=== PATIENT | male | born 1945 | race Caucasian/White ===

== ENCOUNTER 2017-07-09 12:35 | Inpatient (IN) | payer MEDICARE, BC ==
[2017-07-09] MEDS ORDERED: SODIUM CHLORIDE 0.9% 1,000 ML IV STA (13:01)
[2017-07-09] MEDS ORDERED: CLOTRIMAZOLE 1% CREAM 15 GM TUBE TOPICAL STA (13:02)
--- NOTE | 2017-07-09 13:19 | ED ---
General Adult HPI - General Chief complaint: Urogenital Stated complaint: Urogenital Time Seen by Provider: 07/09/17 12:53 Source: patient, RN notes reviewed Mode of arrival: ambulatory Limitations: no limitations - History of Present Illness Initial comments: 72-year-old male presents to the emergency department with chief complaint of UTI. Patient states he had a procedure by Dr. Sanchez for urinary issues. Patient states that was in the middle of May. Patient states he was placed on antibiotic after he developed a UTI after this. Patient states everything seemingly doing better when he got the dysuria again and he's noticed some redness left-sided the testicles. Patient states that he went to see urologist yesterday they put him on a different antibiotic however he is feeling fever and chills at home and he called urology today informed to go the hospital to be admitted for IV antibiotics. He denies any nausea vomiting. Patient has been able to eat and drink well. Patient states he is having some dysuria. Patient denies any blood in urine that is noticed. Patient denies flank pain. Patient denies any recent fever, chills, shortness of breath, chest pain, back pain, abdominal pain, nausea vomiting, numbness or tingling, hematuria, constipation or diarrhea, headaches or visual changes, or any other current symptoms. - Related Data Home Medications Medication Instructions Recorded Confirmed Aspirin [Adult Low Dose Aspirin EC] 81 mg PO DAILY 07/09/17 07/09/17 Biotin 5 mg PO DAILY 07/09/17 07/09/17 Cyanocobalamin [Vitamin B-12] 500 mcg PO DAILY 07/09/17 07/09/17 HYDROcodone/APAP 10-325MG [[place] 1 tab PO TID PRN 07/09/17 07/09/17 10-325] Lisinopril [Zestril] 10 mg PO DAILY 07/09/17 07/09/17 Meloxicam [Mobic] 15 mg PO DAILY PRN 07/09/17 07/09/17 Methocarbamol [Robaxin] 750 mg PO TID PRN 07/09/17 07/09/17 Simvastatin [Zocor] 20 mg PO HS 07/09/17 07/09/17 Tamsulosin HCl [Flomax] 0.8 mg PO DAILY 07/09/17 07/09/17 Allergies Allergy/AdvReac Type Severity Reaction Status Date / Time No Known Allergies Allergy Verified 07/09/17 14:39 Review of Systems ROS Statement: Those systems with pertinent positive or pertinent negative responses have been documented in the HPI. ROS Other: All systems not noted in ROS Statement are negative. Past Medical History Past Medical History: Hyperlipidemia, Hypertension Additional Past Medical History / Comment(s): back pain History of Any Multi-Drug Resistant Organisms: None Reported Additional Past Surgical History / Comment(s): eye Past Psychological History: No Psychological Hx Reported Smoking Status: Former smoker Past Alcohol Use History: None Reported Past Drug Use History: None Reported General Exam Limitations: no limitations General appearance: alert, in no apparent distress Eye exam: Present: normal appearance, PERRL, EOMI. Absent: scleral icterus, conjunctival injection, periorbital swelling ENT exam: Present: normal exam, mucous membranes moist Neck exam: Present: normal inspection. Absent: tenderness, meningismus, lymphadenopathy Respiratory exam: Present: normal lung sounds bilaterally. Absent: respiratory distress, wheezes, rales, rhonchi, stridor Cardiovascular Exam: Present: regular rate, normal rhythm, normal heart sounds. Absent: systolic murmur, diastolic murmur, rubs, gallop, clicks exam: Present: other (Some induration and redness to the left groin area suspicious for tinea cruric). Absent: testicular tenderness Neurological exam: Present: alert, oriented X3 Psychiatric exam: Present: normal affect, normal mood Skin exam: Present: warm, dry, intact, normal color. Absent: rash Course Vital Signs 07/09/17 07/09/17 07/09/17 12:36 13:37 15:33 Temperature 97.9 F 97.7 F Pulse Rate 73 96 74 Respiratory 18 20 20 Rate Blood Pressure 149/67 141/66 160/62 O2 Sat by Pulse 96 97 98 Oximetry Medical Decision Making - Medical Decision Making 72-year-old male presents for dysuria. Patient antibiotics with no improvement to his symptoms. At this time. Contacted Dr. beckford with the patient admitted to Dr. Sanchez and they will comply IV antibiotics. He was continued patient IV fluids in the midline and he will continue the rest of the orders. This is discussed the patient with me. Hand. - Lab Data Result diagrams: 07/09/17 13:35 07/09/17 13:35 Lab Results 07/09/17 07/09/17 07/09/17 Range/Units 13:35 13:35 13:35 WBC 8.0 (3.8-10.6) k/uL RBC 4.38 (4.30-5.90) m/uL Hgb 13.6 (13.0-17.5) gm/dL Hct 40.9 (39.0-53.0) % MCV 93.5 (80.0-100.0) fL MCH 31.0 (25.0-35.0) pg MCHC 33.2 (31.0-37.0) g/dL RDW 14.2 (11.5-15.5) % Plt Count 131 L (150-450) k/uL Neutrophils % 75 % Lymphocytes % 14 % Monocytes % 8 % Eosinophils % 1 % Basophils % 0 % Neutrophils # 6.0 (1.3-7.7) k/uL Lymphocytes # 1.1 (1.0-4.8) k/uL Monocytes # 0.7 (0-1.0) k/uL Eosinophils # 0.1 (0-0.7) k/uL Basophils # 0.0 (0-0.2) k/uL Sodium 141 (137-145) mmol/L Potassium 3.9 (3.5-5.1) mmol/L Chloride 105 (98-107) mmol/L Carbon Dioxide 26 (22-30) mmol/L Anion Gap 10 mmol/L BUN 16 (9-20) mg/dL Creatinine 1.10 (0.66-1.25) mg/dL Est GFR (MDRD) Af Amer >60 (>60 ml/min/1.73 sqM) Est GFR (MDRD) Non-Af >60 (>60 ml/min/1.73 sqM) Glucose 157 H (74-99) mg/dL Plasma Lactic Acid Domenico 1.2 (0.7-2.0) mmol/L Calcium 8.6 (8.4-10.2) mg/dL Total Bilirubin 0.5 (0.2-1.3) mg/dL AST 19 (17-59) U/L ALT 32 (21-72) U/L Alkaline Phosphatase 51 (38-126) U/L Total Protein 6.0 L (6.3-8.2) g/dL Albumin 3.5 (3.5-5.0) g/dL Urine Color Urine Appearance (Clear) Urine pH (5.0-8.0) Ur Specific [place] (1.001-1.035) Urine Protein (Negative) Urine Glucose (UA) (Negative) Urine Ketones (Negative) Urine Blood (Negative) Urine Nitrite (Negative) Urine Bilirubin (Negative) Urine Urobilinogen (<2.0) mg/dL Ur Leukocyte Esterase (Negative) Urine RBC (0-5) /hpf Urine WBC (0-5) /hpf Urine Mucus (None) /hpf 07/09/17 Range/Units 13:35 WBC (3.8-10.6) k/uL RBC (4.30-5.90) m/uL Hgb (13.0-17.5) gm/dL Hct (39.0-53.0) % MCV (80.0-100.0) fL MCH (25.0-35.0) pg MCHC (31.0-37.0) g/dL RDW (11.5-15.5) % Plt Count (150-450) k/uL Neutrophils % % Lymphocytes % % Monocytes % % Eosinophils % % Basophils % % Neutrophils # (1.3-7.7) k/uL Lymphocytes # (1.0-4.8) k/uL Monocytes # (0-1.0) k/uL Eosinophils # (0-0.7) k/uL Basophils # (0-0.2) k/uL Sodium (137-145) mmol/L Potassium (3.5-5.1) mmol/L Chloride (98-107) mmol/L Carbon Dioxide (22-30) mmol/L Anion Gap mmol/L BUN (9-20) mg/dL Creatinine (0.66-1.25) mg/dL Est GFR (MDRD) Af Amer (>60 ml/min/1.73 sqM) Est GFR (MDRD) Non-Af (>60 ml/min/1.73 sqM) Glucose (74-99) mg/dL Plasma Lactic Acid Domenico (0.7-2.0) mmol/L Calcium (8.4-10.2) mg/dL Total Bilirubin (0.2-1.3) mg/dL AST (17-59) U/L ALT (21-72) U/L Alkaline Phosphatase (38-126) U/L Total Protein (6.3-8.2) g/dL Albumin (3.5-5.0) g/dL Urine Color Yellow Urine Appearance Turbid (Clear) Urine pH 6.0 (5.0-8.0) Ur Specific [place] 1.021 (1.001-1.035) Urine Protein 1+ H (Negative) Urine Glucose (UA) 1+ H (Negative) Urine Ketones Trace H (Negative) Urine Blood Moderate H (Negative) Urine Nitrite Negative (Negative) Urine Bilirubin Negative (Negative) Urine Urobilinogen 4.0 (<2.0) mg/dL Ur Leukocyte Esterase Large H (Negative) Urine RBC 162 H (0-5) /hpf Urine WBC >182 H (0-5) /hpf Urine Mucus Rare H (None) /hpf - Radiology Data Radiology results: report reviewed, image reviewed Disposition Clinical Impression: UTI (urinary tract infection), Failure of outpatient treatment, Tinea cruris, Orchitis and epididymitis Disposition: ADMITTED IP TO THIS [facility] Condition: Stable Time of Disposition: 14:40 Decision Date: 07/09/17 Decision Time: 14:40
[2017-07-09 13:54] LABS: Basophils % (A) 0 %; CH 31.6; CHCM 33.9; Eosinophils # (A) 0.1 k/uL (0-0.7); Eosinophils % (A) 1 %; HCT 40.9 % (39.0-53.0); HGB 13.6 gm/dL (13.0-17.5); Luc # (Auto) 0.16; Luc % (Auto) 2; Lymphocytes # (A) 1.1 k/uL (1.0-4.8); Lymphocytes % (A) 14 %; MCHC 33.2 g/dL (31.0-37.0); MCV 93.5 fL (80.0-100.0); Mean Platelet Volume 9.2; Monocytes # (A) 0.7 k/uL (0-1.0); Monocytes % (A) 8 %; Neutrophils % (A) 75 %; RBC 4.38 m/uL (4.30-5.90); RDW 14.2 % (11.5-15.5); WBC (Perox) 8.26
[2017-07-09 14:00] LABS: ALT 32 U/L (21-72); AST 19 U/L (17-59); Alkaline Phosphatase 51 U/L (38-126); Anion Gap 10 mmol/L; Blood Urea Nitrogen 16 mg/dL (9-20); Calcium 8.6 mg/dL (8.4-10.2); Carbon Dioxide 26 mmol/L (22-30); Chloride 105 mmol/L (98-107); Glucose 157 mg/dL (74-99); Non-African American GFR(MDRD) >60 (>60 ml/min/1.73 sqM); Potassium 3.9 mmol/L (3.5-5.1); Sodium 141 mmol/L (137-145); Total Bilirubin 0.5 mg/dL (0.2-1.3)
[2017-07-09 14:09] LABS: Appearance,Urine Turbid (Clear); Bilirubin,Urine Negative (Negative); Glucose,Urine (UA) 1+ (Negative); Ketones,Urine Trace (Negative); Leukocyte Esterase,Urine Large (Negative); Mucus,Urine Rare /hpf; Nitrite,Urine Negative (Negative); Particle Count 11364; Protein,Urine 1+ (Negative); RBC,Urine 162 /hpf (0-5); Specific Gravity,Urine 1.021 (1.001-1.035); UA Billing (MACRO vs. MICRO) MICRO; WBC,Urine >182 /hpf (0-5)
[2017-07-09] MEDS ORDERED: NALOXONE 0.4 MG/ML 1 ML VIAL IV PRN (15:25)
[2017-07-09] MEDS ORDERED: ONDANSETRON 4 MG/2 ML VIAL IVP PRN (15:25)
[2017-07-09] MEDS ORDERED: IBUPROFEN 400 MG TAB PO PRN (15:25)
[2017-07-09] MEDS ORDERED: AMPICILLIN 1,000 MG in SODIUM CHLORIDE 0.9% 50 ML IVPB STA (15:27)
[2017-07-09] MEDS ORDERED: GENTAMICIN PER PHARMACY MISCELLANE PRN (15:27)
[2017-07-09] MEDS ORDERED: MELOXICAM 7.5 MG TAB PO PRN (15:27)
[2017-07-09] MEDS ORDERED: HYDROcodone/APAP 10-325MG 1 EACH TAB PO PRN (15:27)
[2017-07-09] MEDS ORDERED: METHOCARBAMOL 750 MG TAB PO PRN (15:27)
[2017-07-09] MEDS: SODIUM CHLORIDE 0.9% 1,000 ML IV SCH (15:38)
[2017-07-09] MEDS ORDERED: GENTAMICIN 140 MG in SODIUM CHLORIDE 0.9% 100 ML IVPB ONE (15:45)
--- NOTE | 2017-07-09 16:01 | US ---
EXAMINATION TYPE: US scrotum with doppler. DATE OF EXAM: 07/09/2017 COMPARISON: NONE CLINICAL HISTORY: 72-year-old male Pain. Left teste swelling and pain. Hx of infection after prostat e surgery on June 10, 2017. TECHNIQUE: Multiple sonographic images of the scrotum were obtained. Color Doppler and spectral wavef orm analysis of the testicular arteries and veins. FINDINGS: TESTICLES: Right Testicle: 4.2 x 3.9 x 2.6 cm for volume of 22.9 mL. Left Testicle: 3.6 x 2.9 x 2.2 cm for a volume of 11.9 mL. There is relatively homogeneous echotexture on both sides though the right testicle is larger. There may be slightly greater degree of vascularity on the left. On both sides, there is satisfactory arterial inflow and venous flow demonstrated. EPIDIDYMIS HEAD: Right Epididymis: 1.6 x 1.0 x 0.8 cm with an 8 x 5 mm pedunculated lesion likely an appendix of the epididymis. Left Epididymis: 1.4 x 1.1 x 1.3 cm with a small 4 mm epididymal head cyst. The left epididymal he ad appears echogenic and heterogeneous. Bilateral [id number] hydroceles are present and there appears to be some thickening of the cut aneous tissues of the scrotum. IMPRESSION: 1. Asymmetrically larger right testicle. No vascular compromise to suggest testicular torsion. The sm aller size of the left testicle argues against torsion-detorsion phenomenon on the left, symptomatic side. 2. Asymmetric hyperemia of the left testicle and heterogeneous appearance to the left epididymal head . Correlate to exclude epididymoorchitis. 3. Small to moderate lateral hydroceles and some scrotal skin thickening.
--- NOTE | 2017-07-09 20:39 | P.GSHP ---
History of Present Illness H&P Date: 07/09/17 The patient is a 72 yo who one month agounderwent a turp. HE has done well other than frequency during the healing phase. HE was seen 5 days ago and his urine was culture negative. He presented to the office yesterday witha swollen, left epididymid. He was placed on bactrim ds. HiHIsurine was cultured. He had fever and chills last nite and presented to the er today. Heis having discomfort with an epididymoorchitits. He will be given iv ab and ivf to see if we can arrest the progression of this issue. - Constitutional Constitutional: Reports chills, Reports fatigue, Reports fever - Genitourinary (Female) Genitourinary: Reports as per HPI Past Medical History Past Medical History: Chest Pain / Angina, Hyperlipidemia, Hypertension, Prostate Disorder Additional Past Medical History / Comment(s): back pain,arthritis, enlarged prostate, beginnings of cataracats, upper bridge History of Any Multi-Drug Resistant Organisms: None Reported Past Surgical History: Heart Catheterization, Prostate Surgery Additional Past Surgical History / Comment(s): geovany eye sx for strabismus, colonoscopy, turp 06-10-17 Past Anesthesia/Blood Transfusion Reactions: No Reported Reaction Smoking Status: Former smoker - Past Family History Father Family Medical History: Cancer Mother Family Medical History: Cancer Medications and Allergies Home Medications Medication Instructions Recorded Confirmed Type Aspirin [Adult Low Dose Aspirin EC] 81 mg PO DAILY 07/09/17 07/09/17 History Biotin 5 mg PO DAILY 07/09/17 07/09/17 History Cyanocobalamin [Vitamin B-12] 500 mcg PO DAILY 07/09/17 07/09/17 History HYDROcodone/APAP 10-325MG [[place] 1 tab PO TID PRN 07/09/17 07/09/17 History 10-325] Lisinopril [Zestril] 10 mg PO DAILY 07/09/17 07/09/17 History Meloxicam [Mobic] 15 mg PO DAILY PRN 07/09/17 07/09/17 History Methocarbamol [Robaxin] 750 mg PO TID PRN 07/09/17 07/09/17 History Simvastatin [Zocor] 20 mg PO HS 07/09/17 07/09/17 History Sulfamethox-Tmp 800-160Mg [Bactrim 1 PO BID 07/09/17 History DS 800-160 mg] Tamsulosin HCl [Flomax] 0.8 mg PO DAILY 07/09/17 07/09/17 History Allergies Allergy/AdvReac Type Severity Reaction Status Date / Time No Known Allergies Allergy Verified 07/09/17 14:39 Surgical - Exam Vital Signs Temp Pulse Resp BP Pulse Ox 97.9 F 73 18 149/67 96 07/09/17 12:36 07/09/17 12:36 07/09/17 12:36 07/09/17 12:36 07/09/17 12:36 - General well developed, well nourished, moderate pain - ENT no hearing loss - Neck no masses - Respiratory normal expansion, normal respiratory effort - Cardiovascular Rhythm: regular - Abdomen Abdomen: soft - Genitourinary swollen left epididymis with pain to palpation normal penis with no external lesions left: tender - Musculoskeletal normal gait, normal posture - Psychiatric oriented to time, oriented to person, oriented to place, speech is normal, memory intact Results - Labs 07/09/17 13:35 07/09/17 13:35 Abnormal Lab Results - Last 24 Hours (Table) 07/09/17 07/09/17 07/09/17 Range/Units 13:35 13:35 13:35 Plt Count 131 L (150-450) k/uL Glucose 157 H (74-99) mg/dL Total Protein 6.0 L (6.3-8.2) g/dL Urine Protein 1+ H (Negative) Urine Glucose (UA) 1+ H (Negative) Urine Ketones Trace H (Negative) Urine Blood Moderate H (Negative) Ur Leukocyte Esterase Large H (Negative) Urine RBC 162 H (0-5) /hpf Urine WBC >182 H (0-5) /hpf Urine Mucus Rare H (None) /hpf Microbiology - Last 24 Hours (Table) 07/09/17 13:28 Urine Culture - Preliminary Urine,Voided Diabetes panel 07/09/17 Range/Units 13:35 Sodium 141 (137-145) mmol/L Potassium 3.9 (3.5-5.1) mmol/L Chloride 105 (98-107) mmol/L Carbon Dioxide 26 (22-30) mmol/L BUN 16 (9-20) mg/dL Creatinine 1.10 (0.66-1.25) mg/dL Glucose 157 H (74-99) mg/dL Calcium 8.6 (8.4-10.2) mg/dL AST 19 (17-59) U/L ALT 32 (21-72) U/L Alkaline Phosphatase 51 (38-126) U/L Total Protein 6.0 L (6.3-8.2) g/dL Albumin 3.5 (3.5-5.0) g/dL Calcium panel 07/09/17 Range/Units 13:35 Calcium 8.6 (8.4-10.2) mg/dL Albumin 3.5 (3.5-5.0) g/dL Pituitary panel 07/09/17 Range/Units 13:35 Sodium 141 (137-145) mmol/L Potassium 3.9 (3.5-5.1) mmol/L Chloride 105 (98-107) mmol/L Carbon Dioxide 26 (22-30) mmol/L BUN 16 (9-20) mg/dL Creatinine 1.10 (0.66-1.25) mg/dL Glucose 157 H (74-99) mg/dL Calcium 8.6 (8.4-10.2) mg/dL Adrenal panel 07/09/17 Range/Units 13:35 Sodium 141 (137-145) mmol/L Potassium 3.9 (3.5-5.1) mmol/L Chloride 105 (98-107) mmol/L Carbon Dioxide 26 (22-30) mmol/L BUN 16 (9-20) mg/dL Creatinine 1.10 (0.66-1.25) mg/dL Glucose 157 H (74-99) mg/dL Calcium 8.6 (8.4-10.2) mg/dL Total Bilirubin 0.5 (0.2-1.3) mg/dL AST 19 (17-59) U/L ALT 32 (21-72) U/L Alkaline Phosphatase 51 (38-126) U/L Total Protein 6.0 L (6.3-8.2) g/dL Albumin 3.5 (3.5-5.0) g/dL Assessment and Plan Plan: Impression: Acute left epididymoorchitis.sp turp. Failed op therapy Recommendations. Iv ab. Ivf Time with Patient: Greater than 30
[2017-07-09] MEDS: CLOTRIMAZOLE 1% CREAM 15 GM TUBE TOPICAL SCH (20:48)
[2017-07-09] MEDS ORDERED: ATORVASTATIN 10 MG TAB PO SCH (21:00)
[2017-07-09 22:59] VITALS: RESP 16
[2017-07-10] MEDS: AMPICILLIN 1,000 MG in SODIUM CHLORIDE 0.9% 50 ML IVPB SCH ×3 (00:37→12:13)
[2017-07-10] MEDS ORDERED: GENTAMICIN 140 MG in SODIUM CHLORIDE 0.9% 100 ML IVPB SCH (05:00)
[2017-07-10] MEDS: SODIUM CHLORIDE 0.9% 1,000 ML IV SCH ×2 (05:03→12:13)
[2017-07-10 07:44] VITALS: BP 138/81; PULSE 60; TEMP 98
[2017-07-10] MEDS: CLOTRIMAZOLE 1% CREAM 15 GM TUBE TOPICAL SCH (08:31)
[2017-07-10] MEDS ORDERED: ASPIRIN 81 MG CHEW PO SCH (09:00)
[2017-07-10] MEDS ORDERED: LISINOPRIL 10 MG TAB PO SCH (09:00)
[2017-07-10] MEDS ORDERED: TAMSULOSIN 0.4 MG CAP.ER.24H PO SCH (09:00)
[2017-07-10] MEDS ORDERED: NON-FORMULARY DRUG (Biotin [Biotin] 5 MG) PO SCH (09:00)
[2017-07-10 09:45] LABS: Anion Gap 8 mmol/L; Blood Urea Nitrogen 13 mg/dL (9-20); Calcium 8.7 mg/dL (8.4-10.2); Carbon Dioxide 25 mmol/L (22-30); Chloride 109 mmol/L (98-107); Glucose 103 mg/dL (74-99); Non-African American GFR(MDRD) >60 (>60 ml/min/1.73 sqM); Potassium 4.1 mmol/L (3.5-5.1); Sodium 142 mmol/L (137-145)
[2017-07-10] MEDS ORDERED: CYANOCOBALAMIN 500 MCG TAB PO SCH (12:00)
--- NOTE | 2017-07-10 12:33 | P.PN ---
Subjective The patient is in the hospital with a postoperative epididymitis from a TURP one month ago. He was placed on antibiotics but the symptoms were sent and he thus was admitted to the hospital yesterday and placed on gentamicin and ampicillin. He is feeling better. He is afebrile. The redness and the skin is less. The tenderness is decreased. If his urine culture comes back he can be placed on oral antibiotics and discharged home later today. Objective - Vital Signs Vital signs: Vital Signs Temp 98.0 F 07/10/17 07:00 Pulse 60 07/10/17 07:00 Resp 16 07/10/17 07:00 BP 138/81 07/10/17 07:00 Pulse Ox 95 07/10/17 07:00 Intake & Output 07/09/17 07/10/17 07/10/17 18:59 06:59 18:59 Weight 96.162 kg Other: # Voids 2 - Labs CBC & Chem 7: 07/09/17 13:35 07/10/17 08:50 Labs: Abnormal Lab Results - Last 24 Hours (Table) 07/09/17 07/09/17 07/09/17 Range/Units 13:35 13:35 13:35 Plt Count 131 L (150-450) k/uL Chloride (98-107) mmol/L Glucose 157 H (74-99) mg/dL Total Protein 6.0 L (6.3-8.2) g/dL Urine Protein 1+ H (Negative) Urine Glucose (UA) 1+ H (Negative) Urine Ketones Trace H (Negative) Urine Blood Moderate H (Negative) Ur Leukocyte Esterase Large H (Negative) Urine RBC 162 H (0-5) /hpf Urine WBC >182 H (0-5) /hpf Urine Mucus Rare H (None) /hpf 07/10/17 Range/Units 08:50 Plt Count (150-450) k/uL Chloride 109 H (98-107) mmol/L Glucose 103 H (74-99) mg/dL Total Protein (6.3-8.2) g/dL Urine Protein (Negative) Urine Glucose (UA) (Negative) Urine Ketones (Negative) Urine Blood (Negative) Ur Leukocyte Esterase (Negative) Urine RBC (0-5) /hpf Urine WBC (0-5) /hpf Urine Mucus (None) /hpf Microbiology - Last 24 Hours (Table) 07/09/17 13:28 Urine Culture - Preliminary Urine,Voided
--- NOTE | 2017-07-10 12:36 | P.DS ---
Providers Date of admission: 07/09/17 15:32 Attending physician: Tristian Vu Primary care physician: [facility] Course: The patient was brought into the hospital 07/09/2017 because of the urine infection, epididymal orchitis unresponsive to antibiotics. He had fever and chills despite oral antibiotics. He was given IV gentamicin and ampicillin. Overnight his fever subsided his swelling and tenderness subsided. The urine culture from the office the day before came back growing Klebsiella pneumonia. He is sensitive to Bactrim. He'll be discharged home on Bactrim double strength 1 by mouth twice a day for 10 days. He'll follow-up in the office in one week. He also take ibuprofen 600 mg 3 times a day for inflammation. Condition is good diet is regular his activities Limited. Patient Condition at Discharge: Good Plan - Discharge Summary New Discharge Prescriptions: No Action Tamsulosin HCl [Flomax] 0.8 mg PO DAILY Cyanocobalamin [Vitamin B-12] 500 mcg PO DAILY Simvastatin [Zocor] 20 mg PO HS HYDROcodone/APAP 10-325MG [[place] 10-325] 1 tab PO TID PRN PRN Reason: Pain Methocarbamol [Robaxin] 750 mg PO TID PRN PRN Reason: Muscle Spasm Meloxicam [Mobic] 15 mg PO DAILY PRN PRN Reason: ARTHRITIS Lisinopril [Zestril] 10 mg PO DAILY Biotin 5 mg PO DAILY Aspirin [Adult Low Dose Aspirin EC] 81 mg PO DAILY Sulfamethox-Tmp 800-160Mg [Bactrim DS 800-160 mg] 1 PO BID Discharge Medication List Aspirin [Adult Low Dose Aspirin EC] 81 mg PO DAILY 07/09/17 [History] Biotin 5 mg PO DAILY 07/09/17 [History] Cyanocobalamin [Vitamin B-12] 500 mcg PO DAILY 07/09/17 [History] HYDROcodone/APAP 10-325MG [[place] 10-325] 1 tab PO TID PRN 07/09/17 [History] Lisinopril [Zestril] 10 mg PO DAILY 07/09/17 [History] Meloxicam [Mobic] 15 mg PO DAILY PRN 07/09/17 [History] Methocarbamol [Robaxin] 750 mg PO TID PRN 07/09/17 [History] Simvastatin [Zocor] 20 mg PO HS 07/09/17 [History] Sulfamethox-Tmp 800-160Mg [Bactrim DS 800-160 mg] 1 PO BID 07/09/17 [History] Tamsulosin HCl [Flomax] 0.8 mg PO DAILY 07/09/17 [History] Follow up Appointment(s)/Referral(s): Jayce Pendleton DO [Primary Care Provider] - 1-2 days Tristian Vu MD [STAFF PHYSICIAN] - 1 Week Activity/Diet/Wound Care/Special Instructions: Take the previously prescribed Bactrim double strength 1 tablet every 12 hours by mouth until done. Take ibuprofen 200 mg tablets, 3 tablets 3 times a day for 5 days. Discharge Disposition: HOME SELF-CARE
== END 2017-07-10 13:46 | disposition home or self-care (01) | DRG 699 ==
LOC: EC 12:35 → 4MS4W 15:32
PROVIDERS: ADMIT Urology; ATTEND Urology
DX: N99.89 Other postprocedural complications and disorders of genitourinary system (principal); N39.0 Urinary tract infection, site not specified; B96.1 Klebsiella pneumoniae [K. pneumoniae] as the cause of diseases classified elsewhere; I10 Essential (primary) hypertension; B35.6 Tinea cruris; N45.3 Epididymo-orchitis; E78.5 Hyperlipidemia, unspecified; M19.91 Primary osteoarthritis, unspecified site; N42.9 Disorder of prostate, unspecified; Z79.82 Long term (current) use of aspirin; Z79.899 Other long term (current) drug therapy; Z87.891 Personal history of nicotine dependence; Z90.79 Acquired absence of other genital organ(s); Y83.6 Removal of other organ (partial) (total) as the cause of abnormal reaction of the patient, or of later complication, without mention of misadventure at the time of the procedure; Y92.009 Unspecified place in unspecified non-institutional (private) residence as the place of occurrence of the external cause
CPT/HCPCS: 36415; 76870; 80048; 80053; 81001; 83605; 85025; 87040; 87077; 87086; 87186; 93975; 96361; 96365; 99284

== ENCOUNTER 2018-05-27 15:17 | Emergency (ER) | payer BC, OTHER ==
--- NOTE | 2018-05-27 17:36 | XR ---
EXAMINATION TYPE: XR knee limited RT DATE OF EXAM: 05/27/2018 COMPARISON: NONE HISTORY: Knee pain TECHNIQUE: 4 views FINDINGS: I see no fracture nor dislocation. Joint spaces are fairly normal. There is spurring on the patella. There is no sign of joint effusion. IMPRESSION: Negative right knee exam.
[2018-05-27 18:25] VITALS: BP 166/78; PULSE 65; RESP 18; TEMP 98.7
== END 2018-05-27 18:20 | disposition home or self-care (01) ==
LOC: EC 15:17
DX: M71.161 Other infective bursitis, right knee (principal); I10 Essential (primary) hypertension; E78.5 Hyperlipidemia, unspecified; Z87.891 Personal history of nicotine dependence; Z79.82 Long term (current) use of aspirin; Z79.899 Other long term (current) drug therapy
CPT/HCPCS: 99283

== ENCOUNTER → 2018-05-30 | Outpatient (CLI) | payer MEDICARE, BC ==
--- NOTE | 2018-05-30 12:16 | US ---
EXAMINATION TYPE: US venous doppler duplex LE RT DATE OF EXAM: 05/30/2018 10:34 AM COMPARISON: NONE CLINICAL HISTORY: M79.604 PAIN IN RT LEG. SIDE PERFORMED: TECHNIQUE: The lower extremity deep venous system is examined utilizing real time linear array sonog luisa with graded compression, doppler sonography and color-flow sonography. VESSELS IMAGED: External Iliac Vein (EIV) Common Femoral Vein Deep Femoral Vein Greater Saphenous Vein * Femoral Vein Popliteal Vein Small Saphenous Vein * Proximal Calf Veins (* superficial vessels) Right Leg: Negative for DVT Grayscale, color doppler, spectral doppler imaging performed of the deep veins of the lower extremiti es. There is normal flow, compressibility, vascular waveforms. IMPRESSION: No evident deep venous thrombosis at or above the right knee
== END | disposition home or self-care (01) ==
LOC: RADUSWWP 10:06
PROVIDERS: ATTEND Family Medicine
DX: M79.604 Pain in right leg (principal)

== ENCOUNTER 2021-04-10 15:50 | Emergency (ER) | payer MEDICARE, BC ==
--- NOTE | 2021-04-10 16:10 | ED ---
General Adult HPI - General Chief complaint: Chest Pain Stated complaint: chest pain Time Seen by Provider: 04/10/21 15:56 Source: patient, RN notes reviewed, old records reviewed Mode of arrival: ambulatory Limitations: no limitations - History of Present Illness Initial comments: 76-year-old male who had presented to his primary care physician with chief complaint of chest heaviness which is been ongoing for the past 2-3 weeks. Patient has no previous history of CAD. No history of DVT or PE. History of hypertension, no diabetes. He denies any radiation to his symptoms. Denies cough or fever. Denies lower extremity pain or swelling. No abdominal pain nausea vomiting. No diaphoresis. - Related Data Home Medications Medication Instructions Recorded Confirmed Aspirin [Adult Low Dose Aspirin EC] 81 mg PO HS 07/09/17 05/27/18 Cyanocobalamin [Vitamin B-12] 500 mcg PO HS 07/09/17 05/27/18 HYDROcodone/APAP 10-325MG [[place] 1 tab PO BID PRN 07/09/17 05/27/18 10-325] Lisinopril [Zestril] 10 mg PO DAILY 07/09/17 05/27/18 Meloxicam [Mobic] 15 mg PO HS 07/09/17 05/27/18 Simvastatin [Zocor] 20 mg PO HS 07/09/17 05/27/18 methocarbamoL [Robaxin] 750 mg PO TID PRN 07/09/17 05/27/18 Carbidopa-Levodopa 25-100 mg 1 tab PO BID@0900,2100 05/27/18 05/27/18 [Sinemet 25-100] Carbidopa-Levodopa 25-100 mg 1 tab PO DAILY@1200 05/27/18 05/27/18 [Sinemet 25-100] Multivitamins, Thera [Multivitamin 1 tab PO DAILY 05/27/18 05/27/18 (formulary)] Niacin(Unknown) 1 tab PO DAILY 05/27/18 05/27/18 Allergies Allergy/AdvReac Type Severity Reaction Status Date / Time No Known Allergies Allergy Verified 05/27/18 21:28 Review of Systems ROS Statement: Those systems with pertinent positive or pertinent negative responses have been documented in the HPI. ROS Other: All systems not noted in ROS Statement are negative. Past Medical History Past Medical History: Chest Pain / Angina, Hyperlipidemia, Hypertension, Prostate Disorder Additional Past Medical History / Comment(s): back pain,arthritis, enlarged prostate, beginnings of cataracats, upper bridge History of Any Multi-Drug Resistant Organisms: None Reported Past Surgical History: Heart Catheterization, Prostate Surgery Additional Past Surgical History / Comment(s): [facility] eye sx for strabismus, colonoscopy, turp 06-10-17 Past Anesthesia/Blood Transfusion Reactions: No Reported Reaction Past Psychological History: No Psychological Hx Reported Past Alcohol Use History: None Reported Past Drug Use History: None Reported - Past Family History Father Family Medical History: Cancer Mother Family Medical History: Cancer General Exam Limitations: no limitations General appearance: alert, in no apparent distress Head exam: Present: atraumatic, normocephalic Eye exam: Present: normal appearance, PERRL ENT exam: Present: normal exam Neck exam: Present: normal inspection. Absent: tenderness, meningismus Respiratory exam: Present: normal lung sounds bilaterally. Absent: respiratory distress, wheezes, rales, rhonchi Cardiovascular Exam: Present: regular rate, normal rhythm GI/Abdominal exam: Present: soft. Absent: distended, tenderness, guarding, rebound Extremities exam: Present: normal inspection, normal capillary refill. Absent: pedal edema, calf tenderness Neurological exam: Present: alert, oriented X3, CN II-XII intact. Absent: motor sensory deficit Psychiatric exam: Present: normal affect, normal mood Skin exam: Present: warm, dry, intact. Absent: cyanosis, diaphoretic Course Vital Signs 04/10/21 15:52 Temperature 97.5 F L Pulse Rate 68 Respiratory 18 Rate Blood Pressure 129/74 O2 Sat by Pulse 98 Oximetry EKG Findings - EKG Comments: EKG Findings:: EKG: Sinus bradycardia, rate 59, ND interval 160, QRS duration 98, QTC 410, no ST segment elevation. Medical Decision Making - Medical Decision Making 76-year-old male who had presented with a chest heaviness for the past several weeks. Was sent in by primary care physician to rule out ACS. Patient has no prior history. He denies significant pain. He denies associated features including diaphoresis or vomiting. EKG is sinus without ST segment elevation. Chest x-rays negative for acute cardio pulmonary disease. Patient has normal CBC, normal CMP, negative troponin. I did plan to observe this patient for serial cardiac enzymes, telemetry, cardiology consultation, patient prefers discharge but is agreeable with 3 hour troponin. Troponin is repeated and is again negative. He's given strict return parameters and will call his primary care physician tomorrow to arrange further outpatient testing - Lab Data Result diagrams: 04/10/21 16:19 04/10/21 16:19 Lab Results 04/10/21 04/10/21 04/10/21 Range/Units 16:19 16:19 16:19 WBC 6.9 (3.8-10.6) k/uL RBC 4.97 (4.30-5.90) m/uL Hgb 16.1 (13.0-17.5) gm/dL Hct 46.6 (39.0-53.0) % MCV 93.7 (80.0-100.0) fL MCH 32.4 (25.0-35.0) pg MCHC 34.6 (31.0-37.0) g/dL RDW 12.9 (11.5-15.5) % Plt Count 145 L (150-450) k/uL MPV 9.0 Neutrophils % 63 % Lymphocytes % 24 % Monocytes % 8 % Eosinophils % 3 % Basophils % 0 % Neutrophils # 4.4 (1.3-7.7) k/uL Lymphocytes # 1.7 (1.0-4.8) k/uL Monocytes # 0.5 (0-1.0) k/uL Eosinophils # 0.2 (0-0.7) k/uL Basophils # 0.0 (0-0.2) k/uL PT 10.3 (9.0-12.0) sec INR 1.0 (<1.2) APTT 24.2 (22.0-30.0) sec Sodium 139 (137-145) mmol/L Potassium 4.5 (3.5-5.1) mmol/L Chloride 105 (98-107) mmol/L Carbon Dioxide 27 (22-30) mmol/L Anion Gap 7 mmol/L BUN 25 H (9-20) mg/dL Creatinine 1.00 (0.66-1.25) mg/dL Est GFR (CKD-EPI)AfAm 84 (>60 ml/min/1.73 sqM) Est GFR (CKD-EPI)NonAf 73 (>60 ml/min/1.73 sqM) Glucose 102 H (74-99) mg/dL Calcium 9.4 (8.4-10.2) mg/dL Magnesium 1.8 (1.6-2.3) mg/dL Total Bilirubin 0.7 (0.2-1.3) mg/dL AST 47 (17-59) U/L ALT <6 (4-49) U/L Alkaline Phosphatase 44 (38-126) U/L Troponin I (0.000-0.034) ng/mL NT-Pro-B Natriuret Pep pg/mL Total Protein 7.1 (6.3-8.2) g/dL Albumin 4.4 (3.5-5.0) g/dL Lipase 115 (23-300) U/L 04/10/21 04/10/21 Range/Units 16:19 16:19 WBC (3.8-10.6) k/uL RBC (4.30-5.90) m/uL Hgb (13.0-17.5) gm/dL Hct (39.0-53.0) % MCV (80.0-100.0) fL MCH (25.0-35.0) pg MCHC (31.0-37.0) g/dL RDW (11.5-15.5) % Plt Count (150-450) k/uL MPV Neutrophils % % Lymphocytes % % Monocytes % % Eosinophils % % Basophils % % Neutrophils # (1.3-7.7) k/uL Lymphocytes # (1.0-4.8) k/uL Monocytes # (0-1.0) k/uL Eosinophils # (0-0.7) k/uL Basophils # (0-0.2) k/uL PT (9.0-12.0) sec INR (<1.2) APTT (22.0-30.0) sec Sodium (137-145) mmol/L Potassium (3.5-5.1) mmol/L Chloride (98-107) mmol/L Carbon Dioxide (22-30) mmol/L Anion Gap mmol/L BUN (9-20) mg/dL Creatinine (0.66-1.25) mg/dL Est GFR (CKD-EPI)AfAm (>60 ml/min/1.73 sqM) Est GFR (CKD-EPI)NonAf (>60 ml/min/1.73 sqM) Glucose (74-99) mg/dL Calcium (8.4-10.2) mg/dL Magnesium (1.6-2.3) mg/dL Total Bilirubin (0.2-1.3) mg/dL AST (17-59) U/L ALT (4-49) U/L Alkaline Phosphatase (38-126) U/L Troponin I <0.012 (0.000-0.034) ng/mL NT-Pro-B Natriuret Pep 101 pg/mL Total Protein (6.3-8.2) g/dL Albumin (3.5-5.0) g/dL Lipase (23-300) U/L Disposition Clinical Impression: Chest pain Disposition: HOME SELF-CARE Instructions (If sedation given, give patient instructions): Chest Pain (ED) Additional Instructions: Please return with any new or worsening symptoms. Please call her primary care physician tomorrow to arrange further outpatient testing. Is patient prescribed a controlled substance at d/c from ED?: No Referrals: Jayce Pendleton DO [Primary Care Provider] - 1-2 days Time of Disposition: 18:53
[2021-04-10 16:30] LABS: Basophils % (A) 0 %; Eosinophils # (A) 0.2 k/uL (0-0.7); Eosinophils % (A) 3 %; HCT 46.6 % (39.0-53.0); HGB 16.1 gm/dL (13.0-17.5); Lymphocytes # (A) 1.7 k/uL (1.0-4.8); Lymphocytes % (A) 24 %; MCH 32.4 pg (25.0-35.0); MCHC 34.6 g/dL (31.0-37.0); MCV 93.7 fL (80.0-100.0); Monocytes # (A) 0.5 k/uL (0-1.0); Monocytes % (A) 8 %; Neutrophils # (A) 4.4 k/uL (1.3-7.7); Neutrophils % (A) 63 %; Platelet Count 145 k/uL (150-450); RBC 4.97 m/uL (4.30-5.90); RDW 12.9 % (11.5-15.5); WBC 6.9 k/uL (3.8-10.6)
[2021-04-10 16:41] LABS: ALT <6 U/L (4-49); AST 47 U/L (17-59); African American GFR (CKD) 84 (>60 ml/min/1.73 sqM); Albumin 4.4 g/dL (3.5-5.0); Alkaline Phosphatase 44 U/L (38-126); Anion Gap 7 mmol/L; Blood Urea Nitrogen 25 mg/dL (9-20); Calcium 9.4 mg/dL (8.4-10.2); Carbon Dioxide 27 mmol/L (22-30); Chloride 105 mmol/L (98-107); Glucose 102 mg/dL (74-99); Lipase 115 U/L (23-300); Magnesium 1.8 mg/dL (1.6-2.3); Non-African American GFR(CKD) 73 (>60 ml/min/1.73 sqM); Partial Thromboplastin Time 24.2 sec (22.0-30.0); Prothrombin Time 10.3 sec (9.0-12.0); Sodium 139 mmol/L (137-145); Total Bilirubin 0.7 mg/dL (0.2-1.3); Total Protein 7.1 g/dL (6.3-8.2)
--- NOTE | 2021-04-10 16:41 | XR ---
EXAMINATION TYPE: XR chest 2V DATE OF EXAM: 04/10/2021 COMPARISON: Chest x-ray September 06, 2010 HISTORY: Chest pain into left arm for 2 weeks. TECHNIQUE: Frontal and lateral views of the chest are obtained. FINDINGS: There is mild chronic parenchymal change without suspicious focal air space opacity, pleur al effusion, or pneumothorax seen. The cardiac silhouette size is stable and upper limits of normal. The osseous structures are intact. IMPRESSION: No acute cardiopulmonary process.
[2021-04-10 16:44] LABS: Potassium 4.5 mmol/L (3.5-5.1)
[2021-04-10 19:23] VITALS: BP 121/70; PULSE 57; RESP 16; TEMP 97.8
== END 2021-04-10 19:22 | disposition home or self-care (01) ==
LOC: EC 15:50
DX: R07.89 Other chest pain (principal); E78.5 Hyperlipidemia, unspecified; I10 Essential (primary) hypertension; Z79.1 Long term (current) use of non-steroidal anti-inflammatories (NSAID); Z79.82 Long term (current) use of aspirin; Z90.79 Acquired absence of other genital organ(s)
CPT/HCPCS: 36415; 71046; 80053; 83690; 83735; 83880; 84484; 85025; 85610; 85730; 93005; 99285